=== PATIENT | female | born 1960 | race Caucasian/White ===

== ENCOUNTER → 2020-08-10 | Outpatient (CLI) | payer OTHER | LOC: MC.RAD 12:50 | DX: N63.10 Unspecified lump in the right breast, unspecified quadrant (principal); Z85.3 Personal history of malignant neoplasm of breast; Z98.890 Other specified postprocedural states ==

== ENCOUNTER → 2023-02-04 | Outpatient (CLI) | payer OTHER | LOC: COL.CARD 08:00 | DX: R06.02 Shortness of breath (principal) ==

== ENCOUNTER → 2023-02-06 | Outpatient (CLI) | payer OTHER | LOC: COL.CARD 14:20 | DX: R06.02 Shortness of breath (principal) | CPT/HCPCS: J7674 ==